=== PATIENT | male | born 1985 | race Caucasian/White ===

== ENCOUNTER 2018-09-10 11:38 | Emergency (ER) | payer OTHER ==
[~2018-09-10] VITALS: Ht 172.7 cm; Wt 52.2 kg
[2018-09-10 11:51] VITALS: Ht 172.7 cm; Wt 52.2 kg
[2018-09-10 13:15] LABS: CALCIUM 9.4 mg/dL (8.5-10.1); CARBON DIOXIDE 26.8 mmol/L (21-32); CHLORIDE SERUM 107 mmol/L (98-107); CREATININE SERUM 0.9 mg/dL (0.7-1.3); GFR1 > 60 mL/min; GLUCOSE SERUM 114 mg/dL (74-106); POTASSIUM SERUM 3.4 mmol/L (3.5-5.1); SODIUM SERUM 145 mmol/L (136-145)
[2018-09-10 13:27] LABS: ALBUMIN 4.4 g/dL (3.4-5.0); ALKALINE PHOSPHATASE 52 U/L (46-116); ALT/SGPT 17 U/L (16-63); AST/SGOT 6 U/L (15-37); BILIRUBIN TOTAL 0.89 mg/dL (0.20-1.00); HDL CHOLESTEROL 48 mg/dL (40-60); LIPASE 89 IU/L (73-393); T4(THYROXINE) 10.2 ug/dL (4.7-13.3); TOTAL PROTEIN, SERUM 7.4 g/dL (6.4-8.2)
[2018-09-10 13:29] LABS: CHOLESTEROL 124 mg/dL (<200)
[2018-09-10 13:50] LABS: AMPHETAMINE QUAL UR NONE DETECTED (See below)
[2018-09-10 13:53] LABS: BASOPHIL % 0.5 % (0-2); PLATELET COUNT 164 x10^3mcL (130-400); RED CELL DISTRIBUTION WIDTH 13.3 % (11.5-14.5)
[2018-09-10 14:32] LABS: UA SPECIFIC GRAVITY 1.025 (1.005-1.035); microscopic required? YES; urine erythrocyte NEGATIVE (NEGATIVE)
[2018-09-10 17:37] VITALS: BP 114/76
== END 2018-09-10 17:37 | disposition home or self-care (01) ==
LOC: ED 11:38
PROVIDERS: Emergency Medicine
DX: T67.5XXA Heat exhaustion, unspecified, initial encounter (principal); R53.1 Weakness; F32.9 Major depressive disorder, single episode, unspecified; F12.90 Cannabis use, unspecified, uncomplicated; Z59.0 Homelessness; X58.XXXA Exposure to other specified factors, initial encounter; Y93.89 Activity, other specified; Y92.89 Other specified places as the place of occurrence of the external cause; Y99.8 Other external cause status
CPT/HCPCS: 82962; G0480; J3411; J3475; J7030

== ENCOUNTER 2018-09-11 07:12 | Emergency (ER) | payer OTHER ==
[~2018-09-11] VITALS: Ht 172.7 cm; Wt 54.9 kg
[2018-09-11 07:27] VITALS: Ht 172.7 cm; Wt 54.9 kg
[2018-09-11 10:11] VITALS: BP 132/78
== END 2018-09-11 10:11 | disposition home or self-care (01) ==
LOC: ED 07:12
DX: R11.2 Nausea with vomiting, unspecified (principal)
CPT/HCPCS: Q0162